=== PATIENT | male | born 1960 | race Caucasian/White ===

== ENCOUNTER 2017-04-23 12:36 | Emergency (ER) | payer MEDICAID ==
[~2017-04-23] VITALS: Ht 182.9 cm; Wt 114.3 kg
[~2017-04-23 12:36] MED LIST: ASCO500C15 PO; ASPI-999 PO; ATOR10TA66 PO; CALC0.253 PO; CARV25TA PO; DOXA4TAB PO; FURO-124 PO; GABA300C PO; INSA70301U SQ; LEVO150T6 PO
[2017-04-23 13:35] LABS: BASOPHILS % (AUTO) 0 % (0-10); EOSINOPHILS # (AUTO) 0.6 10^3/uL (0.0-0.3); EOSINOPHILS % (AUTO) 9 % (0-10); HEMATOCRIT 30 % (40-54); HEMOGLOBIN 11.3 G/DL (13.3-17.7); LYMPHOCYTES # (AUTO) 0.7 X 10^3 (1.0-4.0); LYMPHOCYTES % (AUTO) 9 % (12-44); MEAN CORPUSCULAR HEMOGLOBIN 35 PG (25-34); MEAN CORPUSCULAR HGB CONC 38 G/DL (32-36); MEAN CORPUSCULAR VOLUME 94 FL (80-99); MEAN PLATELET VOLUME 10.4 FL (7.4-10.4); MONOCYTES # (AUTO) 0.8 X 10^3 (0.0-1.0); MONOCYTES % (AUTO) 11 % (0-12); NEUTROPHILS # (AUTO) 5.2 X 10^3 (1.8-7.8); NEUTROPHILS % (AUTO) 71 % (42-75); PLATELET COUNT 122 10^3/uL (130-400); RED CELL DISTRIBUTION WIDTH 16.2 % (10.0-14.5); WHITE BLOOD COUNT 7.3 10^3/uL (4.3-11.0)
[2017-04-23] MEDS ORDERED: FAMOTIDINE 20MG/2ML IV (PEPCID) IV STA (13:42)
[2017-04-23] MEDS ORDERED: LIDOCAINE 2% VISCOUS 15 ML UDC PO ONE (13:45)
[2017-04-23] MEDS ORDERED: ANTACID SUSP 30 ML UDC (MYLANTA) PO ONE (13:45)
[2017-04-23 13:47] LABS: BILIRUBIN,TOTAL 13.3 MG/DL (0.1-1.0); CREATININE SERUM 2.66 MG/DL (0.60-1.30); MAGNESIUM 1.6 MG/DL (1.8-2.4); POTASSIUM 3.4 MMOL/L (3.6-5.0); TOTAL PROTEIN 6.2 GM/DL (6.4-8.2)
--- NOTE | 2017-04-23 13:51 | ED GI ---
General Chief Complaint: Abdominal/GI Problems Stated Complaint: KIDNEY ISSUES Nursing Triage Note: PT TO ED ROOM 2 PT CO OF EPIGASTRIC DISTRESS, PT IS ECTERIC IN COLOR. PT STATES HAS BEEN HAVING SOME ISSUES W INDIGESTION PT JUST FINISHED DIALYSIS. PT STATES FEELS LIKE HAS BEEN FEELING CAREY SICK SINCE FRIDAY.PT VERY WEAK HAS DIFFICULTY TRANSFERING FROM CHAIR TO BED Sepsis Screen: No Definite Risk Source of Information: Patient Exam Limitations: No Limitations History of Present Illness Date Seen by Provider: Apr 23, 2017 Time Seen by Provider: 13:30 Initial Comments Here with report of epigastric pain and burning it's been going on for several days. Patient is on dialysis. He has had to drink cold water to help resolve pain and actually had moderate fluid overload. He is on dialysis on Friday, Friday and Friday. His farm worker at [facility] saw him this morning and was concerned about possible gallbladder disease. He does note that the patient has jaundice currently with some right-sided abdominal pain. Here for further evaluation. Patient denies vomiting but has had some stool changes. He does not urinate. He did receive dialysis today and had some hypotension with that but that is not uncommon for him. Denies fever. Does admit to changing color of the skin and eyes. Timing/Duration: 1 Week Severity/Quality: Moderate, Aching Location: RUQ, RLQ Radiation: No Radiation Activities at Onset: None Associated Symptoms: No Back Pain, No Chest Pain, No Fever/Chills, Fatigue, No Nausea/Vomiting, No Shortness of Air, No Weakness Allergies and Home Medications Allergies Coded Allergies: No Known Drug Allergies (Unverified , 02/02/16) Home Medications Ascorbic Acid 500 Mg Capsule.er, 500 MG PO DAILY, (Reported) Aspirin 81 Mg Tab.chew, 81 MG PO DAILY, (Reported) Atorvastatin Calcium 10 Mg Tablet, 10 MG PO DAILY, (Reported) Calcitriol 0.25 Mcg Capsule, 0.25 MCG PO DAILY, (Reported) Carvedilol 25 Mg Tablet, 25 MG PO BID, (Reported) Doxazosin Mesylate 4 Mg Tablet, 4 MG PO DAILY, (Reported) Furosemide 40 Mg Tablet, 40 MG PO DAILY, (Reported) Gabapentin 300 Mg Capsule, 300 MG PO BID, (Reported) Insuln Asp Prt/Insulin Aspart 1 Unit/0.01 Ml Susp, 1 UNIT SQ UD, (Reported) Levothyroxine Sodium 150 Mcg Tablet, 150 MCG PO DAILY, (Reported) Review of Systems Constitutional: see HPI, No chills, No fever EENTM: See HPI, No Eye Pain Respiratory: No Symptoms Reported Cardiovascular: See HPI, Edema Gastrointestinal: Abdominal Pain, Denies Diarrhea Genitourinary: See HPI Musculoskeletal: no symptoms reported Psychiatric/Neurological: No Symptoms Reported All Other Systems Reviewed Negative Unless Noted: Yes Past Nhplrgd-Jmkevc-Lwbmfy Hx Patient Social History Alcohol Use: Denies Use Recreational Drug Use: No Smoking Status: Former Smoker Recent Foreign Travel: No Contact w/Someone Who Travel: No Recent Infectious Disease Expo: No Recent Hopitalizations: No Seasonal Allergies Seasonal Allergies: No Surgeries History of Surgeries: Yes Surgeries: Arteriovenous Shunt, Eye Surgery, Rectal Respiratory History of Respiratory Disorde: No Cardiovascular History of Cardiac Disorders: Yes Cardiac Disorders: Chronic Edema/Swelling, Hypertension Reproductive System Hx Reproductive Disorders: No Sexually Transmitted Disease: No HIV/AIDS: No Genitourinary History of Genitourinary Disor: Yes Genitourinary Disorders: Renal Failure Endocrine History of Endocrine Disorders: Yes Endocrine Disorders: Diabetes, Insulin dep, Hypothyroidsim HEENT Loss of Vision: Right Reviewed Nursing Assessment Reviewed/Agree w Nursing PMH: Yes Family Medical History Significant Family History: Heart Disease Physical Exam Vital Signs VS - Last 72 Hours, by Label 04/23/17 12:50 Temp 97.8 Pulse 88 Resp 14 B/P (MAP) 99/76 (84) Pulse Ox 99 Capillary Refill : Less Than 3 Seconds General Appearance: WD/WN, no apparent distress HEENT: PERRL/EOMI, pharynx normal, scleral icterus (R), scleral icterus (L) Neck: full range of motion, supple Respiratory: lungs clear, normal breath sounds Cardiovascular: regular rate, rhythm, no murmur Peripheral Pulses: 2+ Dorsalis Pedis (R), 2+ Left Dors-Pedis (L), 2+ Radial Pulses (R), 2+ Radial Pulses (L) Gastrointestinal: non tender, soft Extremities: non-tender, normal inspection Back: normal inspection, no CVA tenderness, no vertebral tenderness Neurologic/Psychiatric: alert, oriented x 3 Skin: normal color, warm/dry Progress/Results/Core Measures Results/Orders Lab Results Laboratory Tests Test 04/23/17 12:55 Range/Units White Blood Count 7.3 4.3-11.0 10^3/uL Red Blood Count 3.20 L 4.35-5.85 10^6/uL Hemoglobin 11.3 L 13.3-17.7 G/DL Hematocrit 30 L 40-54 % Mean Corpuscular Volume 94 80-99 FL Mean Corpuscular Hemoglobin 35 H 25-34 PG Mean Corpuscular Hemoglobin Concent 38 H 32-36 G/DL Red Cell Distribution Width 16.2 H 10.0-14.5 % Platelet Count 122 L 130-400 10^3/uL Mean Platelet Volume 10.4 7.4-10.4 FL Neutrophils (%) (Auto) 71 42-75 % Lymphocytes (%) (Auto) 9 L 12-44 % Monocytes (%) (Auto) 11 0-12 % Eosinophils (%) (Auto) 9 0-10 % Basophils (%) (Auto) 0 0-10 % Neutrophils # (Auto) 5.2 1.8-7.8 X 10^3 Lymphocytes # (Auto) 0.7 L 1.0-4.0 X 10^3 Monocytes # (Auto) 0.8 0.0-1.0 X 10^3 Eosinophils # (Auto) 0.6 H 0.0-0.3 10^3/uL Basophils # (Auto) 0.0 0.0-0.1 10^3/uL Sodium Level 130 L 135-145 MMOL/L Potassium Level 3.4 L 3.6-5.0 MMOL/L Chloride Level 91 L 98-107 MMOL/L Carbon Dioxide Level 27 21-32 MMOL/L Anion Gap 12 5-14 MMOL/L Blood Urea Nitrogen 12 7-18 MG/DL Creatinine 2.66 H 0.60-1.30 MG/DL Estimat Glomerular Filtration Rate 25 BUN/Creatinine Ratio 5 Glucose Level 71 70-105 MG/DL Calcium Level 8.0 L 8.5-10.1 MG/DL Magnesium Level 1.6 L 1.8-2.4 MG/DL Total Bilirubin 13.3 H 0.1-1.0 MG/DL Aspartate Amino Transf (AST/SGOT) 125 H 5-34 U/L Alanine Aminotransferase (ALT/SGPT) 217 H 0-55 U/L Alkaline Phosphatase 97 40-136 U/L Troponin I < 0.30 <0.30 NG/ML C-Reactive Protein High Sensitivity 0.97 H 0.00-0.50 MG/DL B-Type Natriuretic Peptide 2324.0 H <100.0 PG/ML Total Protein 6.2 L 6.4-8.2 GM/DL Albumin 3.0 L 3.2-4.5 GM/DL Amylase Level 33 25-125 U/L Lipase 17 8-78 U/L My Orders Orders - SEDRICK ROBERTS MD BNP (04/23/17 13:28) Cbc With Automated Diff (04/23/17 13:28) Comprehensive Metabolic Panel (04/23/17 13:28) Hs C Reactive Protein (04/23/17 13:28) Magnesium (04/23/17 13:28) Ua Culture If Indicated (04/23/17 13:28) Us Gallbladder [id number] (04/23/17 13:28) Saline Lock/Iv-Start (04/23/17 13:28) Chest 1 View, Ap/Pa Only (04/23/17 13:28) Lidocaine 2% Viscous 15 Ml (Xylocaine Vi (04/23/17 13:45) Antacid Suspension (Mylanta Suspension (04/23/17 13:45) Famotidine Injection (Pepcid Injection) (04/23/17 13:42) Troponin I (04/23/17 13:42) Amylase (04/23/17 14:15) Lipase (04/23/17 14:15) Medications Given in ED Current Medications Medications Dose Ordered Sig/Jose Alberto Route Start Time Stop Time Status Last Admin Dose Admin Al Hydrox/Mg Hydrox/Simethicone 30 ml ONCE ONCE PO 04/23/17 13:45 04/23/17 13:46 DC 04/23/17 13:55 30 ML Lidocaine HCl 15 ml ONCE ONCE PO 04/23/17 13:45 04/23/17 13:46 DC 04/23/17 13:55 15 ML Vital Signs/I&O Vital Sign - Last 12Hours 04/23/17 12:50 Temp 97.8 Pulse 88 Resp 14 B/P (MAP) 99/76 (84) Pulse Ox 99 Blood Pressure Mean: 84 Progress Note : Progress Note Seen and evaluated. IV, labs, UA, chest x-ray and ultrasound gallbladder ordered. Patient does not urinate so UA canceled. 1500: Ultrasound results noted. Patient will be transferred to Center capable of dialysis as well as managing the gallbladder issues. Patient's primary Center is [facility] in [place], [place]. We will page [place] one call. 1521: I have discussed the case with Dr. Vazquez at [facility] in [place], [place] and he accepts patient for transfer. Requesting blood cultures and antibiotics. We will initiate that. Zosyn 2.25 g IV will be ordered. Patient to be transferred. All of the findings and concerns discussed with patient and family who agree with plan. Diagnostic Imaging Diagonstic Imaging: Xray Plain Films/CT/US/NM/MRI: chest [facility] [place] [place] NAME: BETTIE CHUA [facility] REC#: [id number] PT STATUS: REG ER : 1960 PHYSICIAN: SEDRICK ROBERTS MD ADMIT DATE: 04/23/17/ER Draft Date of Exam:04/23/17 CHEST 1 VIEW, AP/PA ONLY INDICATION: Epigastric discomfort Upright chest shows cardiomegaly with normal vascularity. There is right basilar atelectasis and infiltrate. The right upper lobe and the left lung are clear. A pacemaker is present. There is no acute bony abnormality. IMPRESSION: There is right basilar atelectasis and infiltrate which is a change from the prior exam from 02/02/2016. Recommend followup for clearing. Dictated on workstation # [id number] Dict: 04/23/17 1404 Trans: 04/23/17 1409 [facility] [id number] Interpreted by: JOSE CALHOUN MD Electronically signed by: Diagonstic Imaging: Ultrasound Plain Films/CT/US/NM/MRI: abdomen Comments [facility] [place], [place] NAME: BETTIE CHUA [facility] REC#: [id number] PT STATUS: REG ER : 1960 PHYSICIAN: SEDRICK ROBERTS MD ADMIT DATE: 04/23/17/ER Draft Date of Exam:04/23/17 US GALLBLADDER [id number] PROCEDURE: US Gallbladder. TECHNIQUE: Multiple real-time grayscale images were obtained over the right upper quadrant in various projections. INDICATION: Abdominal pain. FINDINGS: The liver is mildly enlarged at 18.8 cm. No focal liver mass is identified. The gallbladder does contain multiple small stones and sludge. Gallbladder wall is borderline in thickness at 3 mm. No pericholecystic fluid or biliary ductal dilatation is identified. The pancreas was poorly visualized due to overlying bowel gas. The right kidney does demonstrate cortical thinning. No calculi or hydronephrosis is identified. There is some upper abdominal ascites. There is also a small right pleural effusion. IMPRESSION: 1. Mild hepatomegaly. 2. Cholelithiasis and gallbladder sludge with borderline gallbladder wall thickening. If there is concern for acute cholecystitis, hepatobiliary scan could be performed. 3. Renal cortical thinning. 4. Right-sided pleural effusion and upper abdominal ascites. Dictated on workstation # [id number] Dict: 04/23/17 1439 Trans: 04/23/17 1444 [id number] [id number] Interpreted by: LUX SALAS MD Electronically signed by: Departure Impression Impression: Primary Impression: Cholecystitis Additional Impression: End stage renal disease on dialysis Disposition: [facility]-TRM HOSP Condition: Stable Transfer Transfer Time: 15:21 Transfer Facility: [place], [place], Dr. Vazquez accepting. Method of Transfer: EMS Departure-Patient Inst. Referrals: MIR BAUMANN MD (PCP/Family) Primary Care Physician SEDRICK ROBERTS MD Apr 23, 2017 13:51
--- NOTE | 2017-04-23 14:10 | Diagnostic Imaging Report ---
INDICATION: Epigastric discomfort Upright chest shows cardiomegaly with normal vascularity. There is right basilar atelectasis and infiltrate. The right upper lobe and the left lung are clear. A pacemaker is present. There is no acute bony abnormality. IMPRESSION: There is right basilar atelectasis and infiltrate which is a change from the prior exam from 02/02/2016. Recommend followup for clearing. Dictated by: Dictated on workstation # [id number]
[2017-04-23 14:32] LABS: AMYLASE 33 U/L (25-125); LIPASE 17 U/L (8-78)
--- NOTE | 2017-04-23 14:45 | Diagnostic Imaging Report ---
PROCEDURE: US Gallbladder. TECHNIQUE: Multiple real-time grayscale images were obtained over the right upper quadrant in various projections. INDICATION: Abdominal pain. FINDINGS: The liver is mildly enlarged at 18.8 cm. No focal liver mass is identified. The gallbladder does contain multiple small stones and sludge. Gallbladder wall is borderline in thickness at 3 mm. No pericholecystic fluid or biliary ductal dilatation is identified. The pancreas was poorly visualized due to overlying bowel gas. The right kidney does demonstrate cortical thinning. No calculi or hydronephrosis is identified. There is some upper abdominal ascites. There is also a small right pleural effusion. IMPRESSION: 1. Mild hepatomegaly. 2. Cholelithiasis and gallbladder sludge with borderline gallbladder wall thickening. If there is concern for acute cholecystitis, hepatobiliary scan could be performed. 3. Renal cortical thinning. 4. Right-sided pleural effusion and upper abdominal ascites. Dictated by: Dictated on workstation # [id number]
[2017-04-23] MEDS ORDERED: PIPERACILLIN SODIUM/TAZOBACTAM 2.25 GM in NS (IVPB) 100 ML IV ONE (16:00)
[2017-04-23 19:40] VITALS: BP 101/64
== END 2017-04-23 19:40 | disposition short-term general hospital (02) ==
LOC: EDUNIT# 12:36 → ER 12:39
DX: K81.9 Cholecystitis, unspecified (principal); E11.22 Type 2 diabetes mellitus with diabetic chronic kidney disease; I12.0 Hypertensive chronic kidney disease with stage 5 chronic kidney disease or end stage renal disease; N18.6 End stage renal disease; E03.9 Hypothyroidism, unspecified; Z99.2 Dependence on renal dialysis; Z79.82 Long term (current) use of aspirin; Z82.49 Family history of ischemic heart disease and other diseases of the circulatory system; Z79.4 Long term (current) use of insulin; Z87.891 Personal history of nicotine dependence
CPT/HCPCS: 36415; 71045; 76705; 80053; 82150; 83690; 83735; 83880; 84484; 85025; 86141; 87040; 96365; 96375